=== PATIENT | male | born 1995 | race Caucasian/White ===

== ENCOUNTER 2020-05-17 19:13 | Emergency (ER) | payer MEDICAID, OTHER ==
[~2020-05-17] VITALS: Ht 193 cm; Wt 78.2 kg
[2020-05-17] MEDS ORDERED: ipratropium/albuterol 3ml nebule NEB ONE (19:25)
--- NOTE | 2020-05-17 19:50 | NUR ---
RT IN ROOM WITH PATIENT. HEART RATE DECREASING WITH TREATMENT
[2020-05-17 20:54] LABS: BASOPHILS # (AUTO) 0.1 X10'3 (0-0.2); BASOPHILS % (AUTO) 0.6 % (0-1); D-DIMER 0.61 MG/L FEU (0-0.50); EOSINOPHILS # (AUTO) 0.1 X10'3 (0-0.9); EOSINOPHILS % (AUTO) 0.8 % (0-6); HEMATOCRIT 41.6 % (42.0-52.0); HEMOGLOBIN 14.2 g/dl (14.0-17.9); LYMPHOCYTES # (AUTO) 4.1 X10'3 (1.1-4.8); LYMPHOCYTES % (AUTO) 27.8 % (21-51); MEAN CORPUSCULAR HEMOGLOBIN 29.2 PG (27.0-31.0); MEAN CORPUSCULAR HGB CONC 34.1 g/dL (33.0-36.5); MEAN CORPUSCULAR VOLUME 85.5 FL (78-98); MEAN PLATELET VOLUME 8.5 FL (7.4-10.4); MONOCYTES # (AUTO) 1.4 X10'3 (0-0.9); MONOCYTES % (AUTO) 9.5 % (2-12); NEUTROPHILS # (AUTO) 9.1 X10'3 (1.8-7.7); NEUTROPHILS % (AUTO) 61.3 % (42-75); PLATELET COUNT 532 X10'3 (140-440); RED BLOOD COUNT 4.87 X10'6 (4.70-6.10); WHITE BLOOD COUNT 14.9 X10'3 (4.5-11.0)
[2020-05-17 20:58] LABS: ALANINE AMINOTRANSFERASE 31 U/L (12-78); ALBUMIN 4.7 G/DL (3.4-5.0); ALBUMIN/GLOBULIN RATIO 1.1 (1.1-1.5); ALKALINE PHOSPHATASE 105 IU/L (46-116); ANION GAP 10 (8-16); ASPARTATE AMINO TRANSFERASE 18 U/L (10-37); BILIRUBIN,TOTAL 0.3 MG/DL (0.1-1.0); BLOOD UREA NITROGEN 14 MG/DL (7-18); BUN/CREATININE RATIO 10.5 (5.4-32.0); CALCIUM 10.1 MG/DL (8.5-10.1); CHLORIDE 104 MMOL/L (99-107); CREATININE 1.33 MG/DL (0.60-1.10); GLUCOSE 115 MG/DL (70-104); POTASSIUM 4.2 MMOL/L (3.5-5.1); SODIUM 142 MMOL/L (135-145); TOTAL CARBON DIOXIDE 28.3 MMOL/L (24-32); TOTAL PROTEIN 8.8 G/DL (6.4-8.2); eGFR 66 ML/MIN
[2020-05-17] MEDS ORDERED: iohexol 350MG/ML 100ml bottle IV ONE (21:31)
[2020-05-17 22:36] LABS: URINE AMPHETAMINE SCREEN NEGATIVE (Neg); URINE BARBITUATE SCREEN NEGATIVE (Neg); URINE BENZODIAZEPINES SCREEN NEGATIVE (Neg); URINE CANNABINOID SCREEN NEGATIVE (Neg); URINE COCAINE SCREEN NEGATIVE (Neg); URINE METHADONE SCREEN NEGATIVE (Neg); URINE OPIATE SCREEN NEGATIVE (Neg); URINE PHENCYCLIDINE SCREEN NEGATIVE (Neg)
[2020-05-17 22:44] VITALS: BP 160/117
[2020-05-17] MEDS ORDERED: ALBU8HFA PO (23:00)
== END 2020-05-17 23:18 | disposition home or self-care (01) ==
LOC: ER 19:14
DX: R06.02 Shortness of breath (principal); R19.01 Right upper quadrant abdominal swelling, mass and lump; R05 Cough; R07.89 Other chest pain; R42 Dizziness and giddiness; Z79.899 Other long term (current) drug therapy
CPT/HCPCS: 36415; 71046; 71275; 80053; 80305; 84484; 85025; 85379; 93005; 94640; 99285; Q9967; 94760

== ENCOUNTER 2020-07-03 15:44 | Emergency (ER) | payer MEDICAID ==
[~2020-07-03] VITALS: Ht 190.5 cm; Wt 77.3 kg
[2020-07-03] MEDS ORDERED: labetalol 100mg tablet PO STA (17:52)
[2020-07-03] MEDS ORDERED: PRAZ1CAP2 PO (18:39)
--- NOTE | 2020-07-03 18:51 | NUR ---
Pt had near syncopal episode. MARCELA Lucas made aware, came to bedside and assessed Pt. 20 G PIV established and NS bolus started per verbal order from MARCELA Lucas.
[2020-07-03] MEDS ORDERED: normal saline 1000ml 1,000 ML IV ONE (18:55)
[2020-07-03 19:23] VITALS: BP 118/85
== END 2020-07-03 19:16 | disposition home or self-care (01) ==
LOC: ER 15:45
DX: I10 Essential (primary) hypertension (principal); Z79.899 Other long term (current) drug therapy
CPT/HCPCS: 96360; 99285; J7030; 99283

== ENCOUNTER 2020-09-16 17:50 | Emergency (ER) | payer MEDICAID ==
[~2020-09-16] VITALS: Ht 193 cm; Wt 78.2 kg
[~2020-09-16 17:50] MED LIST: PRAZ1CAP2 PO
[2020-09-16 18:37] LABS: HEMOGLOBIN 12.8 g/dl (14.0-17.9)
[2020-09-16 18:39] LABS: BASOPHILS # (AUTO) 0.1 X10'3 (0-0.2); BASOPHILS % (AUTO) 0.7 % (0-1); EOSINOPHILS # (AUTO) 0.2 X10'3 (0-0.9); EOSINOPHILS % (AUTO) 1.8 % (0-6); HEMATOCRIT 37.5 % (42.0-52.0); LYMPHOCYTES # (AUTO) 4.2 X10'3 (1.1-4.8); LYMPHOCYTES % (AUTO) 33.8 % (21-51); MEAN CORPUSCULAR HEMOGLOBIN 29.5 PG (27.0-31.0); MEAN CORPUSCULAR HGB CONC 34.1 g/dL (33.0-36.5); MEAN CORPUSCULAR VOLUME 86.6 FL (78-98); MEAN PLATELET VOLUME 7.7 FL (7.4-10.4); MONOCYTES # (AUTO) 1.3 X10'3 (0-0.9); MONOCYTES % (AUTO) 10.8 % (2-12); NEUTROPHILS # (AUTO) 6.5 X10'3 (1.8-7.7); NEUTROPHILS % (AUTO) 52.9 % (42-75); PLATELET COUNT 444 X10'3 (140-440); RED BLOOD COUNT 4.34 X10'6 (4.70-6.10); RED CELL DISTRIBUTION WIDTH 13.5 % (11.5-14.5); WHITE BLOOD COUNT 12.3 X10'3 (4.5-11.0)
[2020-09-16 18:54] LABS: ALANINE AMINOTRANSFERASE 25 U/L (12-78); ALBUMIN 4.8 G/DL (3.4-5.0); ALBUMIN/GLOBULIN RATIO 1.3 (1.1-1.5); ALKALINE PHOSPHATASE 93 IU/L (46-116); ANION GAP 11 (8-16); ASPARTATE AMINO TRANSFERASE 14 U/L (10-37); BILIRUBIN,TOTAL 0.4 MG/DL (0.1-1.0); BLOOD UREA NITROGEN 12 MG/DL (7-18); BUN/CREATININE RATIO 12.9 (5.4-32.0); CALCIUM 9.6 MG/DL (8.5-10.1); CHLORIDE 100 MMOL/L (99-107); CREATININE 0.93 MG/DL (0.60-1.10); GLUCOSE 93 MG/DL (70-104); LIPASE 155 U/L (73-393); SODIUM 139 MMOL/L (135-145); TOTAL CARBON DIOXIDE 28.2 MMOL/L (24-32); TOTAL PROTEIN 8.5 G/DL (6.4-8.2); eGFR > 90 ML/MIN
--- NOTE | 2020-09-16 20:12 | NUR ---
requested new face sheet and stickers from registration unable to find patietn info at this time for Dr Solano
[2020-09-16 20:51] VITALS: BP 115/77
== END 2020-09-16 20:58 | disposition home or self-care (01) ==
LOC: ER 17:51
DX: R10.9 Unspecified abdominal pain (principal); Z98.890 Other specified postprocedural states
CPT/HCPCS: 36415; 80053; 83690; 85025; 99283

== ENCOUNTER 2021-02-26 18:17 | Inpatient (IN) | payer MEDICAID ==
[~2021-02-26] VITALS: Ht 193 cm; Wt 80.0 kg
--- NOTE | 2021-02-26 18:44 | NUR ---
PT TO CY WITH CT IN WHEELCHAIR.
[2021-02-26 18:55] LABS: BASOPHILS # (AUTO) 0.1 X10'3 (0-0.2); BASOPHILS % (AUTO) 0.6 % (0-1); EOSINOPHILS # (AUTO) 0.1 X10'3 (0-0.9); HEMATOCRIT 38.1 % (42.0-52.0); LYMPHOCYTES # (AUTO) 4.5 X10'3 (1.1-4.8); LYMPHOCYTES % (AUTO) 35.4 % (21-51); MEAN CORPUSCULAR HEMOGLOBIN 29.7 PG (27.0-31.0); MEAN CORPUSCULAR VOLUME 87.5 FL (78-98); MEAN PLATELET VOLUME 7.5 FL (7.4-10.4); MONOCYTES # (AUTO) 1.2 X10'3 (0-0.9); MONOCYTES % (AUTO) 9.2 % (2-12); NEUTROPHILS # (AUTO) 6.8 X10'3 (1.8-7.7); NEUTROPHILS % (AUTO) 53.8 % (42-75); PLATELET COUNT 432 X10'3 (140-440); RED BLOOD COUNT 4.36 X10'6 (4.70-6.10); RED CELL DISTRIBUTION WIDTH 13.3 % (11.5-14.5); WHITE BLOOD COUNT 12.7 X10'3 (4.5-11.0)
[2021-02-26 19:02] LABS: PARTIAL THROMBOPLASTIN TIME 27 SECONDS (22-32)
[2021-02-26 19:05] LABS: ALANINE AMINOTRANSFERASE 32 U/L (12-78); ALBUMIN 4.4 G/DL (3.4-5.0); ALBUMIN/GLOBULIN RATIO 1.2 (1.1-1.5); ALKALINE PHOSPHATASE 92 IU/L (46-116); ANION GAP 10 (8-16); ASPARTATE AMINO TRANSFERASE 20 U/L (10-37); BILIRUBIN,TOTAL 0.4 MG/DL (0.1-1.0); BLOOD UREA NITROGEN 12 MG/DL (7-18); BUN/CREATININE RATIO 12.2 (5.4-32.0); CALCIUM 9.1 MG/DL (8.5-10.1); CHLORIDE 104 MMOL/L (99-107); CREATININE 0.98 MG/DL (0.60-1.10); GLUCOSE 108 MG/DL (70-104); POTASSIUM 3.7 MMOL/L (3.5-5.1); SODIUM 142 MMOL/L (135-145); TOTAL CARBON DIOXIDE 27.7 MMOL/L (24-32); eGFR > 90 ML/MIN
[2021-02-26] MEDS ORDERED: iohexol 350MG/ML 100ml bottle IV ONE (22:55)
[2021-02-26] MEDS ORDERED: ASPI-1265 PO (23:01)
[2021-02-27 00:10] LABS: URINE AMPHETAMINE SCREEN NEGATIVE (Neg); URINE BARBITUATE SCREEN NEGATIVE (Neg); URINE BENZODIAZEPINES SCREEN NEGATIVE (Neg); URINE CANNABINOID SCREEN NEGATIVE (Neg); URINE COCAINE SCREEN NEGATIVE (Neg); URINE METHADONE SCREEN NEGATIVE (Neg); URINE OPIATE SCREEN NEGATIVE (Neg); URINE PHENCYCLIDINE SCREEN NEGATIVE (Neg)
[2021-02-27] MEDS ORDERED: potassium Cl 20 mEq SR tablet PO PRN ×2 (01:00)
[2021-02-27] MEDS ORDERED: magnesium 4gm in 100ml NS 100 ML IV PRN (01:00)
[2021-02-27] MEDS ORDERED: ondansetron/PF 4mg/2ml inj IV PRN (01:00)
[2021-02-27] MEDS ORDERED: magnesium 2GM in 50ml NS 50 ML IV PRN (01:00)
[2021-02-27] MEDS ORDERED: magnesium hydroxide 30ml (MOM) UD suspension PO PRN (01:00)
[2021-02-27] MEDS ORDERED: mag hydrox/Alum hydrox/simeth 30ml oral suspension PO PRN (01:00)
[2021-02-27] MEDS ORDERED: acetaminophen 325mg tablet PO PRN ×2 (01:00)
[2021-02-27] MEDS ORDERED: magnesium Cl slow-release 64mg tablet PO PRN (01:00)
[2021-02-27] MEDS ORDERED: potassium Cl 40MEQ/1/2NS 520ml 520 ML IV PRN ×2 (01:00)
[2021-02-27] MEDS: normal saline 1000ml 1,000 ML IV SCH ×2 (01:48→09:54)
--- NOTE | 2021-02-27 01:49 | NUR ---
NO NEEDS AT THIS TIME. PT RESTING COMFORTABLY.
[2021-02-27] MEDS ORDERED: heparin, porcine 5000 units/ml vial SQ SCH (08:00)
[2021-02-27] MEDS ORDERED: K and/or MAG REPLACEMENT MC SCH (08:00)
[2021-02-27] MEDS ORDERED: aspirin 81mg tab.chew PO SCH (08:00)
--- NOTE | 2021-02-27 08:44 | NUR ---
BACK FROM MRI
--- NOTE | 2021-02-27 10:24 | NUR ---
ASSUMED CARE OF PT FROM REJI VEGA
--- NOTE | 2021-02-27 11:07 | NUR ---
LUG LOADER AT BEDSIDE
--- NOTE | 2021-02-27 11:47 | NUR ---
STROKE NURSE AT BEDSIDE TO EVALUATE PT, PT IS GCS 15, ALERT AND ORIENTED, RESP EVEN AND UNLABORED, SKIN P/W/D, NO ARM DRIFT, NO SLURRED SPEECH, NO FACIAL DROOP, AMB WITH STEADY GAIT
--- NOTE | 2021-02-27 12:49 | NUR ---
PT IS ASKING FOR FOOD, LUNCH TO BE HERE SOON, GAVE PT SNACK, WAITING FOR ECHO TO BE READ
[2021-02-27 16:05] VITALS: BP 142/86
[2021-02-27] MEDS ORDERED: temazepam 15mg capsule PO PRN (21:00)
== END 2021-02-27 16:05 | disposition home or self-care (01) | DRG 47 ==
LOC: ER 18:17 → OBSVTOIN 02-27 00:57 → ED HOLD 02-27 00:57
PROVIDERS: ADMIT Internal Medicine; ATTEND Family Medicine
PROC: B3251ZZ Computerized Tomography (CT Scan) of Bilateral Common Carotid Arteries using Low Osmolar Contrast (ICD-10-PCS; principal; 2021-02-26)
PROC: B32G1ZZ Computerized Tomography (CT Scan) of Bilateral Vertebral Arteries using Low Osmolar Contrast (ICD-10-PCS; 2021-02-26)
PROC: B32R1ZZ Computerized Tomography (CT Scan) of Intracranial Arteries using Low Osmolar Contrast (ICD-10-PCS; 2021-02-26)
PROC: B3281ZZ Computerized Tomography (CT Scan) of Bilateral Internal Carotid Arteries using Low Osmolar Contrast (ICD-10-PCS; 2021-02-26)
DX: G45.9 Transient cerebral ischemic attack, unspecified (principal); Z86.73 Personal history of transient ischemic attack (TIA), and cerebral infarction without residual deficits
CPT/HCPCS: 36415; 70450; 70496; 70498; 70551; 71045; 80053; 80305; 84145; 85025; 85610; 85730; 93005; 93306; 93308; 93880; 97116; 97162; 97530; 99285; G0378; J1644; J7030; Q9967

== ENCOUNTER 2021-08-17 08:46 | Outpatient (CLI) | payer MEDICAID ==
[~2021-08-17 08:46] MED LIST changes: +ASPI-1265 PO; -PRAZ1CAP2 PO
== END 2021-08-17 23:59 | disposition home or self-care (01) ==
LOC: CARD DIAG 08:46
PROVIDERS: ATTEND Family Medicine
DX: Z86.73 Personal history of transient ischemic attack (TIA), and cerebral infarction without residual deficits (principal)
CPT/HCPCS: 93306